=== PATIENT | female | born 1970 | race Caucasian/White ===

== ENCOUNTER 2021-04-04 02:36 | Outpatient (CLI) | payer MEDICAID, SELFPAY ==
[2021-04-04 15:33] LABS: Abs Immature Grans 0.02 10^3/uL (0.0-0.06); Absolute Basophil Count 0.03 10^3/uL (0.0-0.2); Absolute Eosinophil Count 0.07 10^3/uL (0.0-0.7); Absolute Lymphocyte Count 1.16 10^3/uL (1.2-3.4); Absolute Monocyte Count 0.26 10^3/uL (0.1-0.8); Absolute Neutrophil Count 2.76 10^3/uL (1.2-6.7); Basophils % 0.7; Eosinophils % 1.6; HGB 13.8 g/dL (11.2-15.7); Immature Grans % 0.5; MCH 31.5 pg (27.0-33.0); MCHC 34.5 % (32.0-36.0); MCV 91.3 fL (80-95); MPV 9.5 fL (8.0-11.0); Neutrophils % 64.2; Nucleated RBC 0 %; Platelet Count 153 10^3/uL (130-400); RBC 4.38 10^6/uL (3.93-5.22); RDW 11.5 % (11.7-14.6); RDW-SD 39.1 fL
[2021-04-04 16:32] LABS: ESR 2 mm//hr (0-20)
[2021-04-04 16:40] LABS: ALT 28 U/L (14-59); AST 18 U/L (15-37); Albumin 4.2 g/dL (3.4-5.0); Alkaline Phosphatase 57 U/L (46-116); Anion Gap 9.9 mmol/L (3-11); BUN 20 mg/dL (7-18); Bilirubin, Total 0.3 mg/dL (0.2-1.0); CO2 30.1 mmol/L (21.0-32.0); CREATININE 0.8 mg/dL (0.55-1.02); Calcium 9.1 mg/dL (8.5-10.1); Calculated LDL 126 mg/dL (<100); Chloride 104 mmol/L (98-107); Cholesterol 208 mg/dL (<200); Ferritin 35 ng/mL (8-252); Folate 11.5 ng/mL (8.6-20.0); Glucose 65 mg/dL (74-106); HDL Cholesterol 69 mg/dL (40-60); Potassium 3.8 mmol/L (3.5-5.1); Sodium 144 mmol/L (136-145); Total Protein 7.7 g/dL (6.4-8.2); Triglyceride 67 mg/dL (<150); Vitamin B12 416 pg/mL (193-986)
[2021-04-04 16:54] LABS: Iron 54 ug/dL (50-170); Total Iron Binding Capacity 308 ug/dL (250-450); Transferrin Sat 18 % (15-50)
[2021-04-04 16:58] LABS: Hemoglobin A1C 5.3 % (<5.7)
[2021-04-04 21:07] LABS: CRP, High Sensitivity 1.58 mg/L (See Note)
[2021-04-06 10:09] LABS: Lipoprotein (a) <6 mg/dL (<=30)
== END 2021-04-04 02:37 | disposition home or self-care (01) ==
LOC: LBO 02:36
PROVIDERS: PCP Naturopath; Visit Provider Naturopath
DX: M25.562 Pain in left knee (principal); R79.89 Other specified abnormal findings of blood chemistry; E53.8 Deficiency of other specified B group vitamins; Z13.220 Encounter for screening for lipoid disorders; Z13.1 Encounter for screening for diabetes mellitus
CPT/HCPCS: 36415; 80053; 80061; 83695; 85652; 86141; 82607; 82728; 82746; 83036; 83540; 83550; 85025

== ENCOUNTER 2022-03-08 00:58 | Outpatient (CLI) | payer MEDICAID, SELFPAY ==
--- NOTE | 2022-03-08 12:54 | DI.RAD_ITS ---
Exam(s) XR KNEE LT 3V AP,LAT,CALIN EXAM: XR KNEE LT 3V AP,LAT,CALIN CLINICAL HISTORY: LT KNEE JOINT PAIN, M25.562. TECHNIQUE: 2D digital imaging was performed of the left knee. Four images were obtained. AP, later al and PA tunnel views were obtained. COMPARISON: No exams were available for comparison FINDINGS: BONES: No acute fracture is present. No bony destructive lesion is seen. JOINTS: The knee is normally aligned. No joint effusion is seen. SOFT TISSUE: Mild soft tissue swelling anterior to the patella. No radiopaque foreign body. IMPRESSION: Mild soft tissue swelling anterior to the patella. Otherwise unremarkable examination. DATA REPOSITORY: RADIATION DOSE DELIVERED:
== END 2022-03-08 01:18 ==
PROVIDERS: PCP Naturopath; Visit Provider Naturopath
DX: M25.562 Pain in left knee (principal); M79.89 Other specified soft tissue disorders
CPT/HCPCS: 73562

== ENCOUNTER 2022-03-16 02:20 | Outpatient (CLI) | payer MEDICAID, SELFPAY ==
[2022-03-16 14:38] LABS: Kit/Specimen SENT
== END 2022-03-16 02:21 | disposition home or self-care (01) ==
LOC: LBO 02:20
PROVIDERS: PCP Naturopath; Visit Provider Naturopath
DX: A69.20 Lyme disease, unspecified (principal)
CPT/HCPCS: 36415

== ENCOUNTER 2023-05-20 11:16 | Outpatient (CLI) | payer MEDICAID, SELFPAY ==
[2023-05-20 09:11] LABS: Absolute Basophil Count 0.03 10^3/uL (0.0-0.2); Absolute Eosinophil Count 0.11 10^3/uL (0.0-0.7); Absolute Lymphocyte Count 0.92 10^3/uL (1.2-3.4); Absolute Monocyte Count 0.23 10^3/uL (0.1-0.8); Absolute Neutrophil Count 1.27 10^3/uL (1.2-6.7); Basophils % 1.2; Eosinophils % 4.3; HGB 13.7 g/dL (11.2-15.7); Lymphocytes % 35.9; MCH 31.6 pg (27.0-33.0); MCHC 34.3 % (32.0-36.0); MCV 92 fL (80-95); MPV 8.8 fL (8.0-11.0); Neutrophils % 49.6; Platelet Count 121 10^3/uL (130-400); RBC 4.33 10^6/uL (3.93-5.22); RDW 12.1 % (11.7-14.6); RDW-SD 41.6 fL; WBC 2.56 10^3/uL (4.4-10.8)
[2023-05-20 09:26] LABS: ESR < 1 mm/hr (0-30)
[2023-05-20 09:47] LABS: Iron 56 ug/dL (50-170); Total Iron Binding Capacity 314 ug/dL (250-450); Transferrin Sat 18 % (15-50)
[2023-05-20 10:02] LABS: ALT 27 U/L (14-59); AST 21 U/L (15-37); Alkaline Phosphatase 55 U/L (46-116); Anion Gap 4.7 mmol/L (3-11); BUN 15 mg/dL (7-18); Bilirubin, Total 0.5 mg/dL (0.2-1.0); CO2 30.3 mmol/L (21.0-32.0); CREATININE 0.7 mg/dL (0.55-1.02); Calcium 8.7 mg/dL (8.5-10.1); Calculated LDL 131 mg/dL (<100); Chloride 103 mmol/L (98-107); Cholesterol 207 mg/dL (<200); Ferritin 46 ng/mL (8-252); Folate 18.4 ng/mL (8.6-20.0); Glucose 95 mg/dL (74-106); HDL Cholesterol 71 mg/dL (40-60); Potassium 3.8 mmol/L (3.5-5.1); Sodium 138 mmol/L (136-145); Total Protein 7.9 g/dL (6.4-8.2); Triglyceride 27 mg/dL (<150); Vitamin B12 372 pg/mL (193-986)
[2023-05-20 10:09] LABS: Vitamin D 25 Total 58.9 ng/mL (30-100)
[2023-05-22 11:09] LABS: Homocysteine 7.3 umol/L (5.0-13.9)
== END 2023-05-20 11:17 | disposition home or self-care (01) ==
LOC: LBO 11:17
PROVIDERS: PCP Naturopath; Visit Provider Naturopath
DX: Z13.220 Encounter for screening for lipoid disorders (principal); R53.83 Other fatigue; M25.531 Pain in right wrist; E55.9 Vitamin D deficiency, unspecified
CPT/HCPCS: 36415; 80053; 80061; 82306; 83090; 85652; 82607; 82728; 82746; 83540; 83550; 85025

== ENCOUNTER 2025-05-20 16:27 | Emergency (ER) | payer MEDICAID, SELFPAY ==
[2025-05-20 16:28] VITALS: BP 134/75; PULSE 74; RESP 20; TEMP 36.3; O2SAT 95
--- NOTE | 2025-05-20 16:30 | DI.RAD_ITS ---
Exam(s) XR ANKLE LT COMPLETE EXAM: XR ANKLE LT COMPLETE CLINICAL HISTORY: Inversion injury TECHNIQUE: 2D digital imaging was performed. Three views. COMPARISON: No exams were available for comparison FINDINGS: BONES: Nondisplaced fracture extending transversely through the tip of the lateral malleolus. No additional fractures are identified. No bony destructive lesion is seen. JOINTS:The ankle mortise is normally aligned. SOFT TISSUE: Soft tissue swelling around the lateral malleolus. IMPRESSION: Nondisplaced fracture at the tip of the lateral malleolus. Adjacent soft tissue swelling. DATA REPOSITORY: RADIATION DOSE DELIVERED:
--- NOTE | 2025-05-20 16:49 | ED.GENADUL_ITS ---
Discharge Plan Disposition Patient Disposition: Home Condition: Stable Discharge Details Clinical Impression: Left fibular fracture Primary Care Provider: Simona Torres ED Provider: Annabelle Khan Discharge Instructions Instructions: Lower leg fracture, How to care for a splint Additional Instructions: X-rays show that you have a small nondisplaced fracture to the distal end of your left fibula. This also called the lateral malleolus. Please keep the splint on until follow-up with orthopedics. They should call you for an appointment. If you do not hear from them in the next couple of days please give them a call. Apply any pressure to the splint or walk on your foot is much as possible. Do not get the splint wet. You may keep it elevated above the level of your heart and icing for approximately 20 to 30 minutes. If your toes turn blue cold numb or tingly you may loosen the Ryan wrap. If this does not improve circulation please return to the emergency department. Please take Tylenol or Ibuprofen with food every 4-6 hours as needed for pain and swelling. Thank you for allowing us to care for you today. Referrals: Gonzalo Gaspar MD [ [facility], Orthopaedic Surgical] - 1 week Clinical Impression: Left fibular fracture HPI General Mode of arrival: ambulatory . Date/Time Provider Initiated Documentation: 05/20/25 16:36 . Limitations to Documentation: no limitations . Information obtained by: patient, RN notes reviewed and old records reviewed . HPI Narrative: 54-year-old female presents to clinic with swelling after reemerging-hernia yesterday. Patient reports that she reports that patient she rolled her ankle. Had a limping since the injury. Was given crutches by family friend. Been taking Tylenol and ibuprofen. Denies any diffuse proximal leg pain or knee pa in. No other associated symptoms or concerns. On exam she does have some lateral malleolus swelling and tenderness. Distal CMS pulses intact and palpable. Related Data Allergies Allergy/AdvReac Type Severity Reaction Status Date / Time No Known Allergies Allergy Unverified 05/20/25 16:35 General Stated Complaint: Orthopedic DIANNA: 4 Review of Systems All systems reviewed & are unremarkable except as noted in HPI and below Musculoskeletal Musculoskeletal: Reports arthralgias and Reports joint swelling Exam Extrem Left lower extremity: lower leg Details: normal to inspection; no tenderness and ankle Details: tenderness Location: of the lateral malleolus and swelling Details: laterally Course Vital Signs Vital signs: Vital Signs Temperature 36.3 C L 05/20/25 16:28 Pulse 74 05/20/25 16:28 Respiratory Rate 20 05/20/25 16:28 Blood Pressure 134/75 05/20/25 16:28 Pulse Oximetry 95 05/20/25 16:28 Temperature 36.3 C L 05/20/25 16:28 Temperature Source Oral 05/20/25 16:28 Pulse 74 05/20/25 16:28 Respiratory Rate 20 05/20/25 16:28 Blood Pressure 134/75 05/20/25 16:28 Blood Pressure Position Sitting 05/20/25 16:28 Pulse Oximetry 95 05/20/25 16:28 Oxygen Delivery Method Room Air 05/20/25 16:28 Oxygen Flow Rate 0 05/20/25 16:28 Pain Level 1 05/20/25 16:28 Procedure Orthopedic Splinting/Casting Date of Procedure: 05/20/25 Time of procedure: 18:29 Provider that performed the procedure: Annabelle Choi Time Out Performed: Yes Patient Consented: Verbally Side: left Lower Extremity Injury Location: ankle Lower Extremity Immobilizer: stirrup splint and Ryan wrap Weight bearing status: non-weight bearing as tolerated Other Orthopedic Equipment: crutches Procedure Description/Note: Sugar tong stirrup splint applied to left ankle Distal CMS and cap refill less than 2 sec after application. Medical Decision Making 54-year-old female presents to clinic with swelling after reemerging-hernia yesterday. Patient reports that she reports that patient she rolled her ankle. Had a limping since the injury. Was given crutches by family friend. Been taking Tylenol and ibuprofen. Denies any diffuse proximal leg pain or knee pain. No other associated symptoms or concerns. On exam she does have some lateral malleolus swelling and tenderness. Distal CMS pulses intact and pal pable. X-ray ordered, ice pack, Suspect sprain, Diff Dx, Fracture, Occult Fx X-rays show a distal fibula fracture nondisplaced. Will place patient in a fiberglass stirrup splint and given crutches instructed on nonweightbearing follow-up with orthopedics. Splint applied and discussed home care and splint care follow-up care with patient and family. All her questions were answered to the best my ability. Please see procedure note. Patient was referred to orthopedics and instructed on nonweightbearing status. This text was generated using [employer] dictation system, please disregard any odd ities of phrase or misspellings. PFSH All Active Problems (Updated 05/20/25 @ 18:33 by Annabelle Khan NP) Left fibular fracture (Acute) Social History Smoking/Tobacco Use Status: Never Smoking risk assessment performed?: Yes Alcohol Intake: current Alcohol Intake frequency: a few times a month Alcohol type: wine Drug use: Never Housing: house Do you feel safe at home: Yes Do you feel safe in your relationship?: Yes
== END 2025-05-20 18:52 | disposition home or self-care (01) ==
PROVIDERS: Emergency Provider Registered Nurse Emergency; PCP Naturopath
DX: S82.65XA Nondisplaced fracture of lateral malleolus of left fibula, initial encounter for closed fracture (principal); X58.XXXA Exposure to other specified factors, initial encounter
CPT/HCPCS: 27786; 99283 ×2; 73610